=== PATIENT | female | born 1960 | race Two or more races ===

== ENCOUNTER 2024-10-01 14:00 | Emergency (ER) | payer OTHER ==
[~2024-10-01] VITALS: Ht 162.6 cm; Wt 61.2 kg
[~2024-10-01 14:00] MED LIST: SYNTHROID75 MCG PO
[2024-10-01] MEDS ORDERED: [UNRECOGNIZED DRUG - OTHER] (14:34)
[2024-10-01 15:49] LABS: BASO % 0.8 % (0.1-1.2); EOS # 0.13 (0.04-0.54); EOS % 2.1 % (0.7-7.0); LYMPH # 1.68 (1.18-3.74); LYMPH % 26.8 % (19.3-53.1); MEAN PLATELET VOLUME 9.40 fl (9.4-12.4); MONO # 0.51 (0.24-0.82); MONO % 8.1 % (4.7-12.5); NEUT # 3.88 (1.56-6.13); NEUT % 61.9 % (34.0-71.1); RED CELL DISTRIBUTION WIDTH 13.2 % (11.6-14.4)
[2024-10-01 16:24] LABS: COVID-19 AG NEGATIVE (NEGATIVE)
[2024-10-01 16:29] LABS: ALT/SGPT 19.0 U/L (12-78); AST/SGOT 19.0 U/L (15-37); BILIRUBIN TOTAL 0.27 mg/dL (0.3-1.2); BUN CREA RATIO 23.0 (7.0-25.0); CREATININE SERUM 0.9 mg/dL (0.55-1.02); GFR 62.84; GLOBULINA 3.0 G/DL (2.4-3.5); GLUCOSE FASTING 99.0 mg/dL (65-100); OSMOLALITY SERUM 279.0 MOSM/KG (275-295)
== END 2024-10-01 19:27 | disposition home or self-care (01) ==
LOC: ER 14:50
PROVIDERS: General Practice
DX: R53.1 Weakness (principal); R07.89 Other chest pain; E03.8 Other specified hypothyroidism; E11.9 Type 2 diabetes mellitus without complications; Z91.013 Allergy to seafood; Z20.822 Contact with and (suspected) exposure to COVID-19